=== PATIENT | male | born 2005 | race Caucasian/White ===

== ENCOUNTER 2024-07-07 16:24 | Emergency (ER) | payer SELFPAY | END 2024-07-07 18:18 | disposition home or self-care (01) | LOC: NAV ERS 16:24 | DX: M25.511 Pain in right shoulder (principal); F17.290 Nicotine dependence, other tobacco product, uncomplicated; X50.1XXA Overexertion from prolonged static or awkward postures, initial encounter | CPT/HCPCS: 99283 ==